=== PATIENT | female | born 1980 | race African-American/Black ===

== ENCOUNTER 2017-08-04 11:03 | Emergency (ER) | payer OTHER ==
[~2017-08-04] VITALS: Ht 165.1 cm; Wt 80.3 kg
[~2017-08-04 11:03] MED LIST: FLEXERIL PO; IBUPROFEN 600600 M1 PO; LORTAB 5 MG/5001 TA1 PO; MOTRIN 600 MG600 M1 OR; NOHOMEMEDICATIONS; NORCO 5-325 TA1 EACH PO; PREDNISONE 20 M20 MG PO; PROAIR HFA8.5 GM IH
[2017-08-04] MEDS ORDERED: ZESTORETIC 20-1 EAC2 PO ×2 (12:09→12:59)
[2017-08-04 13:05] VITALS: BP 134/82
[2017-08-04 13:07] LABS: ABSOLUTE NEUTROPHILS 5.4 thou/uL (1.4-8.2); BASOPHILS 1.3 % (0.0-2.0); EOSINOPHILS 2.4 % (0.0-3.0); HEMATOCRIT 42.4 % (37.0-47.0); HEMOGLOBIN 13.9 gm/dL (12.0-15.0); LYMPHOCYTES 25.9 % (24.0-44.0); MCH 28.2 pg (26.0-34.0); MCHC 32.7 g/dL (28.0-37.0); MCV 86.4 fL (80.0-100.0); MONOCYTES 8.6 % (1.0-8.0); PLATELET COUNT 207 thou/uL (150-400); POLYS 61.8 % (36.0-66.0); RBC 4.91 mil/uL (4.20-5.00); RDW 15.2 % (10.5-14.5); WBC 8.7 thou/uL (4.0-11.0)
[2017-08-04 13:08] LABS: MANUAL DIFF NO
[2017-08-04 13:15] LABS: CALCIUM 9.7 mg/dL (8.5-10.1); CREATININE 0.9 mg/dL (0.6-1.0); POTASSIUM 3.9 mmol/L (3.5-5.1)
== END 2017-08-04 14:13 | disposition home or self-care (01) ==
LOC: ER 11:03
PROVIDERS: Emergency Medicine
DX: R51 Headache (principal); J45.909 Unspecified asthma, uncomplicated; Z88.0 Allergy status to penicillin

== ENCOUNTER 2018-08-05 17:53 | Emergency (ER) | payer OTHER ==
[~2018-08-05] VITALS: Ht 165.1 cm; Wt 73.0 kg
[~2018-08-05 17:53] MED LIST changes: +ZESTORETIC 20-1 EAC2 PO
[2018-08-05] MEDS ORDERED: HYDROCHLOROTHIA25 M2 PO (18:09)
[2018-08-05] MEDS ORDERED: NORVASC5 MG PO (18:09)
[2018-08-05] MEDS ORDERED: COUMADIN 5 MG TA5 M1 PO (20:21)
[2018-08-05] MEDS ORDERED: TRAMADOL 50 MG50 MG PO (20:21)
[2018-08-05 20:30] LABS: HEMATOCRIT 35.4 % (37.0-47.0); HEMOGLOBIN 11.6 gm/dL (12.0-15.0); MCH 28.2 pg (26.0-34.0); MCHC 32.9 g/dL (28.0-37.0); MCV 85.7 fL (80.0-100.0); RBC 4.13 mil/uL (4.20-5.00); RDW 15.7 % (10.5-14.5); WBC 7.5 thou/uL (4.0-11.0)
[2018-08-05 20:40] LABS: CALCIUM 8.7 mg/dL (8.5-10.1); CREATININE 0.9 mg/dL (0.6-1.0); POTASSIUM 3.8 mmol/L (3.5-5.1)
[2018-08-05 20:48] LABS: APTT 26.1 Seconds (24.5-32.8); D-DIMER 1.01 ug/mLFEU (0.19-0.50); PROTIME 10.6 Seconds (9.3-11.4)
[2018-08-05 21:32] VITALS: BP 136/45
[2018-08-05] MEDS ORDERED: ENOXAPARIN80 MG/0.1 SUBQ (21:37)
== END 2018-08-05 21:38 | disposition home or self-care (01) ==
LOC: ER 17:53
PROVIDERS: Emergency Medicine
DX: I82.402 Acute embolism and thrombosis of unspecified deep veins of left lower extremity (principal); J45.909 Unspecified asthma, uncomplicated; I10 Essential (primary) hypertension; Z88.0 Allergy status to penicillin